=== PATIENT | female | born 1945 | race Caucasian/White ===

== ENCOUNTER 2017-01-16 16:30 | Emergency (ER) | payer OTHER ==
[2017-01-16 16:42] VITALS: BP 163/90; PULSE 73; TEMP 97.8; BMI 31.9
--- NOTE | 2017-01-16 17:19 | PDOC ---
History of Present Illness - General Chief Complaint: Rash Stated Complaint: RASH Time Seen by Provider: 01/16/17 16:47 History Source: Patient, Family - History of Present Illness Initial Comments: CHIEF COMPLAINT: 72 y/o afebrile female with PMH HTN, NIDDM c/o left leg pain. HISTORY OF PRESENT ILLNESS: The patient states this pain started 1 month ago but this morning became much worse. She has an appointment scheduled to see Dr. Louise Tuesday but the pain is so bad she cannot wait until Tuesday. She took tylenol for the pain. She denies f/c, cough, hemoptysis, CP, SOB, redness/swelling to affected leg. Vital signs on arrival are within normal limits. REVIEW OF SYSTEMS: GENERAL/CONSTITUTIONAL: No fever/chills. No weakness. No weight change. HEAD, EYES, EARS, NOSE AND THROAT: No change in vision. No ear pain or discharge. No sore throat. CARDIOVASCULAR: No chest pain or shortness of breath. RESPIRATORY: No cough, wheezing, or hemoptysis. MUSCULOSKELETAL: +left lower leg pain. No neck or back pain. SKIN: No rash or easy bruising. NEUROLOGIC: No headache, vertigo, loss of consciousness, or loss of sensation. PHYSICAL EXAM: VITAL_SIGNS: within normal limits GENERAL_APPEARANCE: alert, cooperative, no obvious discomfort. MENTAL_STATUS: speech clear, oriented X 3, responds appropriately to questions. NEURO: motor intact and sensory intact in injured extremity. EXTREMITIES: 2+ dorsalis pedis pulse b/l LEs. Extensive varicose veins on b/l LEs. No erythema or edema to left LE. TTP of left calf with positive Deon's sign. Left foot colder than right. SKIN: warm, dry, good color. Past History - Past Medical History Allergies/Adverse Reactions: Allergies Allergy/AdvReac Type Severity Reaction Status Date / Time No Known Drug Allergies Allergy Verified 01/16/17 16:34 Home Medications: Ambulatory Orders Metformin HCl 500 mg PO DAILY 03/17/16 Omeprazole [Prilosec] 40 mg PO DAILY 03/17/16 Mirabegron [Myrbetriq] 25 mg PO DAILY 01/16/17 Anemia: No Asthma: No Cancer: No Cardiac Disorders: No CVA: No COPD: No CHF: No Dementia: No Diabetes: Yes GI Disorders: Yes (gerd) Disorders: No HTN: Yes Hypercholesterolemia: No Liver Disease: No Seizures: No Thyroid Disease: No - Surgical History Abdominal Surgery: No Appendectomy: No Cardiac Surgery: No Cholecystectomy: No Lung Surgery: No Neurologic Surgery: No Orthopedic Surgery: No - Psycho/Social/Smoking Cessation Hx Anxiety: No Suicidal Ideation: No Smoking History: Never smoked Have you smoked in the past 12 months: No Information on smoking cessation initiated: No Hx Alcohol Use: No Drug/Substance Use Hx: No Substance Use Type: None Hx Substance Use Treatment: No *Physical Exam - Vital Signs Last Vital Signs Temp Pulse Resp BP Pulse Ox 97.8 F 73 18 163/90 100 01/16/17 16:34 01/16/17 16:34 01/16/17 16:34 01/16/17 16:34 01/16/17 16:34 Medical Decision Making - Medical Decision Making A/P: 72 y/o female with left calf pain. Plan is as follows: 1. Doppler left LEs 2. Arterial doppler b/l LEs Doppler left LE IMPRESSION: No DVT left lower extremity Arterial doppler IMPRESSION: bilateral lower extremity arterial flow is demonstrated at common femoral, superficial femoral, popliteal and posterior tibial arteries ( triphasic and biphasic waveforms seen). No arterial occlusion seen in bilateral lower extremities. MIld scattered atherosclerotic plaques are present. Gave patient her results. Offered MOtrin or Toradol but she refused both. Suggested she continue taking tylenol for pain at home, follow RICE instructions and keep follow up appointment with Dr. Louise scheduled for Tuesday. Pt instructed to return to the ER with any worsening or concerning symptoms. The patient verbalizes understanding of all instructions, has no further questions and is awaiting discharge. *DC/Admit/Observation/Transfer Diagnosis at time of Disposition: Left leg pain, Varicose vein of leg - Discharge Dispostion Disposition: HOME Condition at time of disposition: Good - Referrals Referrals: Ross Louise MD [Primary Care Provider] - (Keep appointment for Tuesday) - Patient Instructions Printed Discharge Instructions: DI for Leg Pain, How To Perform RICE (Rest, Ice , Compress, Elevate) Additional Instructions: Discharge Instructions: -Take Tylenol for pain -Apply ice to the affected area -Keep your appointment with Dr. Louise scheduled for Tuesday -Return to the ER with any worsening or concerning symptoms Print Language: IRAQI
== END 2017-01-16 20:52 | disposition home or self-care (01) ==
LOC: JER 16:30 → JERFT 16:30
DX: I83.812 Varicose veins of left lower extremity with pain (principal); I10 Essential (primary) hypertension; E11.9 Type 2 diabetes mellitus without complications; Z79.84 Long term (current) use of oral hypoglycemic drugs; K21.9 Gastro-esophageal reflux disease without esophagitis
CPT/HCPCS: 93925-TC; 93971-TC; 99281-25

== ENCOUNTER 2017-05-16 05:21 | Day surgery (SDC) | payer OTHER ==
[2017-05-13 11:25] VITALS: BMI 31.8
[2017-05-16] MEDS ORDERED: BUPIVACAINE HCL/PF 0.5% (5MG/ML) 10 ML VIAL ONE (10:44)
--- NOTE | 2017-05-16 10:52 | HP ---
History & Physical Update - History History: No Change - Physical Physical: No Change - Assessment Assessment: No Change - Plan Plan: No Change (Patient seen in the office recently and no change from initial exam; 5 scalp cyst will be removed)
[2017-05-16] MEDS ORDERED: MIDAZOLAM HCL 2 MG/2 ML SINGLE DOSE VIAL ONE ×2 (10:55)
[2017-05-16] MEDS ORDERED: DEXAMETHASONE SOD PHOSPHATE 4 MG/1 ML VIAL ONE (11:07)
[2017-05-16] MEDS ORDERED: KETOROLAC TROMETHAMINE 30 MG/1 ML VIAL ONE (11:07)
[2017-05-16] MEDS ORDERED: BACITRACIN 15 GM TUBE TOPICAL OINTMENT ONE (11:22)
[2017-05-16] MEDS ORDERED: BUPIVACAINE HCL/PF 0.5% (5MG/ML) 10 ML VIAL IJ ONE (11:28)
[2017-05-16] MEDS ORDERED: LIDOCAINE 1%/EPI 1:100000 (50 ML MULTI DOSE VIAL) INF ONE (11:28)
[2017-05-16] MEDS ORDERED: PROMETHAZINE HCL 25 MG/1 ML VIAL IVPUSH PRN (12:24)
[2017-05-16] MEDS ORDERED: oxyCODONE HCL 5 MG TABLET PO PRN (12:24)
--- NOTE | 2017-05-16 12:29 | OP ---
Operative Note - Note: Operative Date: 05/16/17 Pre-Operative Diagnosis: scalp cysts Operation: excision scalp cyst (5) Surgeon: Papo Haney Anesthesia: MAC Specimens Removed: 5 scalp cysts each ~ 2.0 cm. Estimated Blood Loss (mls): 0
[2017-05-16] MEDS ORDERED: ACETAMINOPHEN WITH CODEINE 300MG/30MG TABLET PO PRN (12:36)
[2017-05-16] MEDS ORDERED: ONDANSETRON 4 MG/2 ML VIAL IVPUSH PRN (12:41)
[2017-05-16 16:02] VITALS: BP 106/60; PULSE 67; TEMP 97.8
[2017-05-17] MEDS ORDERED: metFORMIN HCL 500 MG TABLET (FP) PO SCH (07:00)
[2017-05-17] MEDS ORDERED: PATIENT'S OWN MEDICATION (NON-FORMULARY) (Mirabegron [Myrbetriq] 25 MG) PO SCH (10:00)
[2017-05-17] MEDS ORDERED: PANTOPRAZOLE 40 MG TABLET (FP) PO SCH (10:00)
--- NOTE | 2017-05-17 16:10 | PATH ---
Surgical Pathology Report Patient Name: FIDEL GOLD [facility]. Rec. #: [id number] /Age/Gender: 1945 (Age: 72) / F Account: [id number] Location: [facility] Taken: 05/16/2017 Received: 05/16/2017 Reported: 05/17/2017 Physicians: Papo Haney MD Specimen(s) Received SCALP CYSTS Clinical History Scalp cyst (5) Final Diagnosis SCALP CYST, EXCISION: PILAR (TRICHILEMMAL) CYSTS (x5). Electronically Signed Homero Gerber M.D. Gross Description Received in formalin labeled "scalp cyst" are 5 cystic structures ranging from 0.7-1.2 cm in greatest dimension. Two of the cysts are disrupted. A promotional representative section of each cyst is submitted in one cassette. /05/16/201705/16/2017
--- NOTE | 2017-05-18 11:03 | OP ---
DATE OF OPERATION: 05/16/2017 PREOPERATIVE DIAGNOSIS: Scalp cysts. POSTOPERATIVE DIAGNOSIS: Scalp cysts. PROCEDURE: Excision of multiple scalp cysts. SURGEON: Papo Haney MD ANESTHESIA: Local with IV sedation. ANESTHESIOLOGIST: David Menesse MD OPERATIVE FINDINGS: There were five scalp cysts, the largest measuring approximately 2 cm in greatest dimension. The rest of the findings were unremarkable. DESCRIPTION OF PROCEDURE: The patient was placed on the operating table in the supine position with the head elevated and turned to the left. The area over the previously five marked scalp cysts was prepped with Betadine and draped in sterile fashion after an appropriate amount of hair was removed to proceed with surgery. A time-out was taken, and then, the skin over the first scalp cyst was infiltrated with 1% Xylocaine with epinephrine and 0.5% Marcaine. The incision was made with the scalpel and taken down through skin and subcutaneous tissue, and then, the cyst was bluntly dissected and excised and passed off the operative field and sent for pathological examination. Hemostasis was secured with electrocautery, and the wound closed with 3-0 nylon horizontal locked mattress sutures. The exact same procedure was repeated on the four remaining scalp cysts, turning the head as deemed appropriate. At the conclusion of the procedure, all the incisions were dressed with Bacitracin, and the procedure terminated at this point, and the patient was transferred to the post-anesthesia care unit in stable condition, awake and alert. ESTIMATED BLOOD LOSS: Minimal. DRAINS: None. SPECIMENS: Five scalp cysts to Pathology. I, Papo Haney, was physically present in the operating room from the time the patient was placed on the operating table until she was transferred to the post-anesthesia care unit in my accompaniment. MD ISRAEL Wong/[id number]
== END 2017-05-16 15:00 | disposition home or self-care (01) ==
LOC: JASU-SURG 05:21
PROVIDERS: ATTEND Surgery
PROC: 0HB0XZZ Excision of Scalp Skin, External Approach (ICD-10-PCS; principal; 2017-05-16 11:00)
DX: L72.11 Pilar cyst (principal)
CPT/HCPCS: 88304-TC; 94760

== ENCOUNTER → 2024-06-11 | Day surgery (SDC) | payer OTHER | END | disposition home or self-care (01) | LOC: FMAMMOTONE 10:01 | PROVIDERS: ATTEND Surgery | PROC: 0HBT3ZX Excision of Right Breast, Percutaneous Approach, Diagnostic (ICD-10-PCS; principal; 2024-06-11) | DX: Z53.8 Procedure and treatment not carried out for other reasons (principal) | CPT/HCPCS: 19081 ==